=== PATIENT | male | born 1935 | race Hispanic/Latino ===

== ENCOUNTER → 2018-11-11 | Outpatient (REF) | payer MEDICARE, MEDICAID ==
[~2018-11-11] MED LIST: ASPIRIN81 MG PO; CIPROFLOXACN250 MG PO; COREG6.25 MG PO; DILAUDID 2MG2 MG/TA1 PO; FLOMAX0.4 M1 PO; JANUVIA100 MG PO; LOSARTAN POT50 MG PO; METFORMIN500 MG PO; METRONIDAZOL500 MG PO; NO; NORVASC PO; PENICILLN VK500 MG OR; ROCEPHIN1 G1 IJ; TAMSULOSIN HCL0.4 MG PO; ULTRAM50 MG OR; ULTRAM50 MG PO
[2018-11-11 09:15] LABS: HEMATOCRIT 41.1 % (39.0-50.0); HEMOGLOBIN 12.9 g/dl (14.0-18.0); MEAN CELL VOLUME 90.5 fL CALC (80.0-100.0); MEAN CORPUSCULAR HGB 28.4 pG CALC (26.0-32.0); MEAN CORPUSCULAR HGB CONC 31.4 g/L CALC (32.0-36.0); RED BLOOD COUNT 4.54 mill/uL (4.70-6.10); RED CELL DISTRI WIDTH 13.3 % (11.5-15.5)
[2018-11-11 09:44] LABS: ALBUMIN 4.2 g/dL (3.2-5.0); BILIRUBIN, TOTAL 0.5 mg/dL (0.0-1.4); CREATININE 1.6 mg/dL (0.7-1.3); POTASSIUM 4.4 mmol/l (3.5-5.1)
== END | disposition home or self-care (01) ==
LOC: LAB 07:48
PROVIDERS: ATTEND Nurse Practitioner Family
DX: E11.21 Type 2 diabetes mellitus with diabetic nephropathy (principal); I10 Essential (primary) hypertension; N18.3 Chronic kidney disease, stage 3 (moderate)

== ENCOUNTER 2020-02-24 13:31 | Emergency (ER) | payer MEDICARE, MEDICAID ==
[2020-02-24 16:10] VITALS: BP 155/78
== END 2020-02-24 16:10 | disposition home or self-care (01) ==
LOC: ED 13:31
DX: Z20.828 Contact with and (suspected) exposure to other viral communicable diseases (principal); E11.9 Type 2 diabetes mellitus without complications

== ENCOUNTER 2022-12-31 14:55 | Emergency (ER) | payer MEDICARE, MEDICAID ==
[~2022-12-31] VITALS: Ht 172.7 cm; Wt 85.0 kg
[2022-12-31 15:13] VITALS: BP 185/71
[2022-12-31 15:15] VITALS: BP 128/71
[2022-12-31 15:31] VITALS: BP 127/84
[2022-12-31 15:53] LABS: BASO% 0.6 % (0-3); EOS% 4.3 % (0-8); HEMATOCRIT 39.8 % (39.0-50.0); HEMOGLOBIN 12.4 g/dl (14.0-18.0); IMMATURE GRANULOCYTES 0.2 % (0.0-5.0); LYMPH% 17.8 % (15-41); MEAN CELL VOLUME 88.1 fL CALC (80.0-100.0); MEAN CORPUSCULAR HGB 27.4 pG CALC (26.0-32.0); MEAN CORPUSCULAR HGB CONC 31.2 g/dL CAL (32.0-36.0); MONO% 8.9 % (2-13); NEUT# 4.45 thou/uL (1.82-7.42); NEUT% 68.2 % (42-76); RED BLOOD COUNT 4.52 mill/uL (4.70-6.10); RED CELL DISTRI WIDTH 13.4 % (11.5-15.5)
[2022-12-31 16:11] LABS: ALBUMIN 4.1 g/dL (3.2-5.0); CREATININE 1.4 mg/dL (0.7-1.3); TOTAL PROTEIN 7.2 g/dL (6.3-8.2)
[2022-12-31 16:12] LABS: BILIRUBIN, TOTAL 0.5 mg/dL (0.2-1.3)
[2022-12-31 17:02] VITALS: BP 181/76
[2022-12-31 17:31] VITALS: BP 168/74
[2022-12-31] MEDS ORDERED: TRAMADOL HYDROC50 M1 PO (17:59)
[2022-12-31] MEDS ORDERED: OMNI-PAC300 MG PO (17:59)
[2022-12-31 18:12] VITALS: BP 168/74
== END 2022-12-31 18:27 | disposition home or self-care (01) ==
LOC: ED 14:55
PROVIDERS: Family Medicine
PROC: 0HQ3XZZ Repair Left Ear Skin, External Approach (ICD-10-PCS; principal; 2022-12-31)
DX: S01.312A Laceration without foreign body of left ear, initial encounter (principal); E11.9 Type 2 diabetes mellitus without complications; W10.9XXA Fall (on) (from) unspecified stairs and steps, initial encounter; Y92.009 Unspecified place in unspecified non-institutional (private) residence as the place of occurrence of the external cause; Z79.84 Long term (current) use of oral hypoglycemic drugs